=== PATIENT | male | born 1960 | race Caucasian/White ===

== ENCOUNTER 2022-04-17 09:41 | Outpatient (CLI) | payer OTHER ==
[2022-04-17 10:42] LABS: CREATININE,URINE 108.8 mg/dL; MICROALBUM/CREATININE RATIO,UR 1.8 ug/mg (<30.0); MICROALBUMIN,URINE 0.2 mg/dL (0-300.0)
[2022-04-17 10:45] LABS: CHOL/HDL RATIO 4.2 (<5.0); CHOLESTEROL 133 mg/dL; HDL CHOLESTEROL 32 mg/dL; LDL CHOLESTEROL,CALCULATED 88 mg/dL; LDL/HDL RATIO 2.8 (<3.6); TRIGLYCERIDES 65 mg/dL; VLDL CHOLESTEROL 13 mg/dL
[2022-04-17 10:57] LABS: THYROID STIMULATING HORMONE 0.76 uIU/mL (0.34-5.60)
== END 2022-04-17 09:42 | disposition home or self-care (01) ==
LOC: LAB 09:41
PROVIDERS: ATTEND Family Medicine
DX: I10 Essential (primary) hypertension (principal); E78.5 Hyperlipidemia, unspecified; I25.10 Atherosclerotic heart disease of native coronary artery without angina pectoris; M62.838 Other muscle spasm; Z12.5 Encounter for screening for malignant neoplasm of prostate
CPT/HCPCS: 36415; 80061; 82043; 82570; 83721; 84153; 84443

== ENCOUNTER 2022-05-17 17:39 | Outpatient (CLI) | payer OTHER ==
[2022-05-17 17:53] LABS: BASOPHILS # (AUTO) 0.1 10^3/uL (0.0-0.1); BASOPHILS % (AUTO) 0.6 %; EOSINOPHILS # (AUTO) 0.3 10^3/uL (0.0-0.7); EOSINOPHILS % (AUTO) 3.6 %; HCT - HEMATOCRIT 43.2 % (42.0-52.0); HGB - HEMOGLOBIN 14.8 g/dL (14.0-18.0); LYMPHOCYTES # (AUTO) 1.8 10^3/uL (1.5-3.5); LYMPHOCYTES % (AUTO) 22.8 %; MEAN CORPUSCULAR HEMOGLOBIN 30.1 pg (27.0-31.0); MEAN CORPUSCULAR HGB CONC 34.3 g/dL (32.0-36.0); MEAN PLATELET VOLUME 9.9 fL (7.4-11.4); MONOCYTES # (AUTO) 0.8 10^3/uL (0.0-1.0); MONOCYTES % (AUTO) 10.6 %; NEUTROPHILS # (AUTO) 4.8 10^3/uL (1.5-6.6); NEUTROPHILS % (AUTO) 62.1 %; PLT - PLATELET COUNT 276 10^3/uL (130-450); RED BLOOD COUNT 4.91 10^6/uL (4.70-6.10); RED CELL DISTRIBUTION WIDTH 12.2 % (12.0-15.0); WHITE BLOOD COUNT 7.8 x10^3/uL (4.8-10.8)
[2022-05-17 18:14] LABS: CALCIUM 8.8 mg/dL (8.5-10.3); CREATININE 0.8 mg/dL (0.6-1.2); POTASSIUM 4.4 mmol/L (3.5-5.0)
== END 2022-05-17 17:40 | disposition home or self-care (01) ==
LOC: LAB.R 17:39
PROVIDERS: ATTEND Internal Medicine Infectious Disease
DX: T82.7XXA Infection and inflammatory reaction due to other cardiac and vascular devices, implants and grafts, initial encounter (principal); A49.8 Other bacterial infections of unspecified site
CPT/HCPCS: 80048; 82550; 85025

== ENCOUNTER 2022-05-20 21:27 | Emergency (ER) | payer OTHER ==
--- NOTE | 2022-05-20 23:43 | ED Physician Documentation ---
History of Present Illness - Stated complaint Stated Complaint: RT ARM INFECTION - Chief complaint Chief Complaint: Ext Problem - History obtained from History obtained from: Patient, Family - Additonal information Additional information: The patient comes to the emergency department chief complaint of brief discomfort and discoloration of his right upper extremity. 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 He has been on this for about 6 days, and that is the same duration that he has had the PICC line. He states that about 2 hours after his last daptomycin infusion, he suddenly felt a tight sensation in his arm. When he looked down, his arm looked purpleish and the veins were all bulging out. Patient states the focus of tightness was up in his upper arm where the PICC line is. He states that this lasted for a few minutes and once his tried to feel his radial pulse, it caused his arm to relax and the symptoms suddenly went away. The patient denies any issues since. He has not had any swelling of his arm. No pain. The PICC line is inserted in the right brachial vein and he has not noticed any redness or itching around the area. states that the PICC has seemed to be patent and that she has been able to push the medicine and the flush without difficulty. Patient has no history of DVT. No other complai nts at this time. The symptoms resolved approximately 2 hours ago. Review of Systems Ten Systems: 10 systems reviewed and negative Constitutional: reports: Reviewed and negative Eyes: reports: Reviewed and negative Ears: reports: Reviewed and negative Nose: reports: Reviewed and negative Throat: reports: Reviewed and negative Cardiac: reports: Reviewed and negative Respiratory: reports: Reviewed and negative GI: reports: Reviewed and negative : reports: Reviewed and negative Skin: reports: Reviewed and negative Musculoskeletal: reports: Reviewed and negative Neurologic: reports: Reviewed and negative Psychiatric: reports: Reviewed and negative Endocrine: reports: Reviewed and negative Immunocompromised: reports: Reviewed and negative PD PAST MEDICAL HISTORY - Allergies Allergies/Adverse Reactions: Allergies Allergy/AdvReac Type Severity Reaction Status Date / Time Penicillins Allergy Unknown Verified 05/20/22 21:40 milk AdvReac Nausea Verified 05/20/22 21:40 PD ED PE NORMAL - Vitals Vital signs reviewed: Yes - General General: Alert and oriented X 3, No acute distress, Well developed/nourished - HEENT HEENT: Atraumatic, PERRL, EOMI, Moist mucous membranes - Neck Neck: Supple, no meningeal sign - Cardiac Cardiac: Strong equal pulses - Respiratory Respiratory: No respiratory distress - Derm Derm: Normal color, Warm and dry, No rash - Extremities Extremities: No deformity, No edema, Other (Symmetrical upper extremities. No edema of right upper extremity. Strong and intact distal pulses. PICC line in good placement and intact distal right upper arm. No erythema, induration, fluctuance, or edema around the site. No streaking.) - Neuro Neuro: Alert and oriented X 3 - Psych Psych: Normal mood, Normal affect Results - Vitals Vitals: Vital Signs - 24 hr 05/20/22 05/20/22 05/20/22 21:31 21:40 23:40 Temperature 36.3 C L 36.5 C 36.5 C Heart Rate 85 85 86 Respiratory 16 16 16 Rate Blood Pressure 146/87 H 146/87 H 140/80 H O2 Saturation 97 97 98 Oxygen O2 Source Room air PD Medical Decision Making - ED course Complexity details: considered differential, d/w patient, d/w family ED course: I discussed with the patient and his that at this point in time, his arm looks fine. I am not sure what caused the sudden onset incident, but it is possible that he had some venous spasm around the PICC line, which caused the blood to back up somewhat. There is no evidence of a DVT at this point in time. However, I have counseled the patient and that if he develops longer- lasting or more frequent episodes, he will probably need a venous ultrasound. We have discussed the need for follow-up and the usual indications for return. At this time, PICC seems to be functional and the patient may continue to use it. Departure - Departure Disposition: 01 Home, Self Care Clinical Impression: Pain in extremity Qualifiers: Extremity pain location: upper extremity Laterality: right Qualified Code(s): M79.601 - Pain in right arm Instructions: ED PICC Line Care Comments: The examination of your right arm is normal at this point in time. You have a good pulse and there is no swelling. There is also no discoloration compared to the left side and no redness, firmness, or swelling around the site to indicate infection. As we have discussed, your symptoms were fairly short-lived and resolved easily on their own. Your PICC line seems to be working fine. However, if you have repeated episodes, especially if they last for increasing length of time, then you should be reevaluated and at that time, evaluated for possible clot with ultrasound. At this point in time, though, there is no evidence of a blood clot and you may continue to use the PICC line as directed. Discharge Date/Time: 05/20/22 23:45
[2022-05-20 23:45] VITALS: BP 140/80
== END 2022-05-20 23:45 | disposition home or self-care (01) ==
LOC: ED 21:27
DX: M79.601 Pain in right arm (principal)
CPT/HCPCS: 99281; 99282